=== PATIENT | male | born 1930 | race Caucasian/White ===

== ENCOUNTER 2017-11-28 13:09 | Outpatient (CLI) | payer MEDICARE, BC ==
--- NOTE | 2017-11-28 14:09 | RAD ---
LUMBAR SPINE FOUR VIEWS: History: 87-year-old male with history of worsening back pain. FINDINGS: Status post laminectomy, posterior fusion, and pedical screw placement changes at L4-5 with intradisc al prostheses. Extensive surgical clips in the pelvis and left total hip replacement change. Exam includes flexion and extension lateral views. No evidence of abnormal translation between flexio n and extension. IMPRESSION: Post-operative changes at L4-5. Other findings as above. POS: [facility]
== END 2017-11-28 13:10 | disposition home or self-care (01) ==
LOC: SCSRAD 13:09
PROVIDERS: ATTEND Family Medicine
DX: M54.5 Low back pain (principal); Z98.890 Other specified postprocedural states; Z98.1 Arthrodesis status
CPT/HCPCS: 72110

== ENCOUNTER 2018-05-04 06:36 | Emergency (ER) | payer MEDICARE, BC ==
[2018-05-04] MEDS ORDERED: Ondansetron ODT 4 MG TAB ONE (07:03)
[2018-05-04 07:38] LABS: #Eosinphils 0.1 thou/uL (0.0-0.7); #Lymphocytes 2.3 thou/uL (1.20-3.40); #Monocytes 0.6 thou/uL (0.11-0.59); #Neutrophils 7.2 thou/uL (1.40-6.50); %Basophils 0.4 % (0.0-1.0); %Eosinophils 0.8 % (0.0-10.0); %Lymphocytes 22.1 % (21.0-51.0); %Monocytes 5.7 % (0.0-10.0); Hemoglobin 16.4 g/dL (14.0-18.0); Mean Corpuscular HGB CONC 33.7 g/dL (32.0-36.0); Mean Corpuscular Hemoglobin 32.1 pg (27.0-31.0); Mean Corpuscular Volume 95.1 fL (78.0-98.0); Mean Platelet Volume 10.7 fL (7.4-10.4); Platelet Count 207 thou/uL (130-400); RBC Distribution Width 13.9 % (11.5-14.5); White Blood Cell (WBC) Count 10.2 thou/uL (4.8-10.8)
[2018-05-04] MEDS ORDERED: Ondansetron HCl/PF 4 MG/2 ML Vial ONE (08:09)
[2018-05-04 08:33] LABS: Bilirubin Negative (Negative); Blood, Urine Small (Negative); Clarity CLEAR (Clear); Glucose, Urine (Dipstick) Negative (Negative); Leukocyte Negative (Negative); Nitrite Negative (Negative); Protein, Urine (Dipstick) Negative (Neg-Trace); Specific Gravity, Urine 1.016 (1.002-1.036); Urobilinogen 0.2 mg/dL (0.2-1.0)
[2018-05-04 08:34] LABS: Bacteria/HPF None Seen HPF (None Seen); Hyaline Casts/LPF 0-3 HYALINE CAST LPF (0-3 Hyaline); Pathc Cast-AUWi Flag 0.14 (0-2.49); Squamous Epithelial 0-3 HPF (0-3); WBC/HPF 0-3 HPF (0-3)
--- NOTE | 2018-05-04 08:39 | CT ---
CT ABDOMEN AND PELVIS WITHOUT CONTRAST: INDICATIONS: History of DVT and right calf pain. FINDINGS: There is mild left hydronephrosis. There is prominent edema surrounding the ureter. There is a 4 mm calculus within the distal left ureter. There is bibasilar atelectasis. Unopacified liver, pancreas, and adrenal glands are unremarkable. There are granuloma within the spl een. Unopacified right kidney reveals a tiny hypodensity involving the inferior pole that can be fur ther characterized. There are moderate calcifications involving the abdominopelvic vasculature. Unopacified small and large bowel reveal no definite acute abnormality. There is a mild amount of re tained stool within the colon. There are numerous surgical clips within the lower pelvis, suspicious for a prior prostatectomy. Prominent beam scatter artifact from left total hip replacement limits v isualization of the pelvis. There is instrumentation involving the L4-L5 intervertebral level. No d efinite acute fracture or subluxation is evident. IMPRESSION: 1. A 4 mm distal left ureteral calculus with mild left hydronephrosis. 2. There is prominent edema surrounding the left ureter and the inferior aspect of the left renal pe lvis, which may be related to reactive edema in the retroperitoneum; however, a partial ureteral rupt ure cannot be entirely excluded. A urology consultation is recommended. POS: [facility]
[2018-05-04 08:45] LABS: Lavender RECEIVED; Red RECEIVED
[2018-05-04 09:13] LABS: ALT (SGPT) 13 U/L (8-55); AST (SGOT) 23 U/L (5-34); Albumin 4.5 g/dL (3.4-4.8); Alkaline Phosphatase 115 U/L (40-150); Anion Gap 13 mmol/L (10-20); BUN (Urea Nitrogen) 23 mg/dL (8.4-25.7); Bilirubin, Direct 0.4 mg/dL (0.1-0.3); Bilirubin, Total 1.1 mg/dL (0.2-1.2); Calc. Creatinine Clearance 0 mL/min (70-130); Calcium 9.3 mg/dL (7.8-10.44); Carbon Dioxide 27 mmol/L (23-31); Chloride 104 mmol/L (98-107); Estimated GFR-MDRD 72; Glucose 136 mg/dL (83-110); Lipase 22 U/L (8-78); Potassium 3.9 mmol/L (3.5-5.1); Protein, Total 7.1 g/dL (5.8-8.1); Sodium 140 mmol/L (136-145)
== END 2018-05-04 09:50 | disposition home or self-care (01) ==
LOC: ERS 06:36
DX: N13.2 Hydronephrosis with renal and ureteral calculous obstruction (principal); Z79.899 Other long term (current) drug therapy
CPT/HCPCS: 36415; 74176; 80048; 81003; 81015; 83690; 85025; 96374; 96375; J2270; J2405; Q0162

== ENCOUNTER 2018-07-26 13:20 | Outpatient (CLI) | payer MEDICARE, BC ==
--- NOTE | 2018-07-26 17:52 | RAD ---
THREE VIEWS LUMBAR SPINE WITH LATERAL AND FLEXION AND EXTENSION VIEWS PROVIDED: 07/26/18 HISTORY: Lumbar stenosis. History of prior back surgery. Patient having left lower extremity weakness for the last month. COMPARISON: 11/28/17. FINDINGS: As noted on prior study, there is posterior fusion at the L4-5 level with bipedicular screws and post erior rods transfixing this level. Intradiscal prosthesis is noted. There is no hardware complication present. Vertebral body heights are within normal limits. Scattered osteophytes are seen in the lumb ar spine. There is no fracture or subluxation identified. No abnormal translational motion is seen be tween the flexion and extension views. Multiple surgical clips again overlie the pelvis. The left total hip prosthesis again partially image d. IMPRESSION: 1. Stable postsurgical changes related to posterior fusion at the L4-5 level. No abnormal transl ational motion is seen between flexion and extension views. Vertebral body heights are within normal limits. 2. Vascular calcifications. POS: [facility]
--- NOTE | 2018-07-26 17:57 | MRI ---
MRI LUMBAR SPINE WITHOUT CONTRAST: Date: 07/26/18 HISTORY: Lumbar stenosis with neurogenic claudication. Left leg weakness x1 month. COMPARISON: None. FINDINGS: Appropriate T1 marrow signal intensity of the lumbar vertebra. There are bilateral transpedicular scr ews at L4 and L5 with associated metallic susceptibility artifact. There is a prosthesis at L4-L5 dis c space. 2.9 mm of retrolisthesis of L1 upon L2. No significant STIR hyperintensity to suggest vertebral body edema due to fracture. No evidence of ligamentous injury. There are mild Type I Modic changes at the inferior end plate of L1, inferior end plate of L2, superior end plate of L3, inferior end plate of L 3, and superior end plate of L4. Symmetric signal intensity of the psoas muscles. Appropriate signal intensity in the visualized solid organs. Conus medullaris terminates at the inferior aspect of T12. T12-L1: Adequate disc hydration. No significant central canal stenosis. Neural foraminal are patent bilateral ly. L1-L2: Desiccation with mild loss of disc space height. No significant posterior disc abnormality. No signif icant central canal stenosis. Mild right and mild to moderate left foraminal narrowing. L2-L3: Adequate disc hydration. No significant loss of disc space height. No significant posterior disc abno rmalities. Mild ligamentum flavum thickening and facet hypertrophy. No significant central canal sten osis. Right neural foramen is patent. Moderate left foraminal narrowing. L3-L4: Adequate disc hydration. No significant loss of disc space height. There is generalized disc bulge, l igamentum flavum thickening, and facet hypertrophy that causes mild to moderate stenosis of the theca l sac. There is narrowing of both subarticular zones, left greater than right. There is abutment of t he traversing right L4 nerve root and partial obscuration of the traversing left L4 nerve root. There is a small amount of fluid in both facet joints. Right neural foramen is patent. Moderate left neura l foraminal narrowing. L4-L5: There is a right hemilaminectomy defect. Disc prosthesis is identified. No significant central canal stenosis. Right neural foramen is patent. Mild left foraminal narrowing. L5-S1: Adequate disc hydration. No significant central canal stenosis. Minimal narrowing at the left subarti cular zone. Disc material abuts the traversing left S1 nerve root. No significant central canal steno sis. Mild bilateral foraminal narrowing. IMPRESSION: 1. Postsurgical changes of lumbar spine as above. 2. Degenerative changes of the lumbar spine as detailed above. There is no evidence of high grade ce ntral canal stenosis. Significant left foraminal narrowing at multiple levels, as detailed above. POS: [facility]
== END 2018-07-26 13:21 | disposition home or self-care (01) ==
LOC: SCSMRI 13:20
PROVIDERS: ATTEND Anesthesiology Pain Medicine
DX: M48.062 Spinal stenosis, lumbar region with neurogenic claudication (principal); M47.896 Other spondylosis, lumbar region; M99.83 Other biomechanical lesions of lumbar region; Z98.1 Arthrodesis status
CPT/HCPCS: 72100; 72148

== ENCOUNTER 2019-03-08 09:27 | Emergency (ER) | payer MEDICARE, BC ==
[2019-03-08 10:19] LABS: #Basophils 0.1 thou/uL (0.0-0.2); #Eosinphils 0.1 thou/uL (0.0-0.7); #Lymphocytes 1.2 thou/uL (1.20-3.40); #Monocytes 0.6 thou/uL (0.11-0.59); #Neutrophils 5.8 thou/uL (1.40-6.50); %Basophils 1.1 % (0.0-1.0); %Eosinophils 1.1 % (0.0-10.0); %Lymphocytes 15.4 % (21.0-51.0); %Monocytes 7.9 % (0.0-10.0); %Neutrophils 74.5 % (42.0-75.0); Hemoglobin 15.5 g/dL (14.0-18.0); Mean Corpuscular HGB CONC 32.9 g/dL (32.0-36.0); Mean Corpuscular Hemoglobin 31.2 pg (27.0-31.0); Mean Corpuscular Volume 94.8 fL (78.0-98.0); Platelet Count 180 thou/uL (130-400); Red Blood Cell (RBC) Count 4.98 mill/uL (4.70-6.10); White Blood Cell (WBC) Count 7.8 thou/uL (4.8-10.8)
[2019-03-08 10:28] LABS: ALT (SGPT) 20 U/L (8-55); AST (SGOT) 17 U/L (5-34); Albumin 3.7 g/dL (3.4-4.8); Alkaline Phosphatase 109 U/L (40-150); Anion Gap 10 mmol/L (10-20); BUN (Urea Nitrogen) 20 mg/dL (8.4-25.7); Bilirubin, Total 0.7 mg/dL (0.2-1.2); CK (CPK) 69 U/L (30-200); Calc. Creatinine Clearance 0 mL/min (70-130); Carbon Dioxide 29 mmol/L (23-31); Chloride 108 mmol/L (98-107); Estimated GFR-MDRD 88; Globulin 2.3 g/dL (2.4-3.5); Glucose 79 mg/dL (83-110); Lipase 25 U/L (8-78); Sodium 143 mmol/L (136-145)
--- NOTE | 2019-03-08 10:41 | RAD ---
PORTABLE CHEST 1 VIEW: Date: 03/08/19 Time: 1032 hours HISTORY: Shortness of breath. FINDINGS: Comparison made with exam of 10/11/16. The heart size is normal. There are changes of median sternotomy. The lungs are expanded without loba r consolidation, pneumothoraces, or pleural effusions. There is no evidence of rima pulmonary edema. IMPRESSION: No acute process. POS: [facility]
[2019-03-08] MEDS ORDERED: Azithromycin 250 MG TAB ONE (11:46)
[2019-03-08] MEDS ORDERED: methylPREDNISolone Sod Succ/PF 125 MG/2 ML VIAL ONE (11:46)
== END 2019-03-08 12:08 | disposition home or self-care (01) ==
LOC: SCSER 09:27
DX: J20.9 Acute bronchitis, unspecified (principal); Z79.82 Long term (current) use of aspirin; Z79.899 Other long term (current) drug therapy
CPT/HCPCS: 71045; 80053; 82550; 83690; 83880; 84484; 85025; 93005; 94760; 96374; J2930; J7620

== ENCOUNTER 2020-12-28 11:45 | Outpatient (CLI) | payer MEDICARE, BC ==
[2020-12-28 14:49] LABS: Anion Gap 10 mmol/L (10-20); BUN (Urea Nitrogen) 27 mg/dL (8.4-25.7); Calc. Creatinine Clearance 0 mL/min (70-130); Calcium 9.2 mg/dL (7.8-10.44); Carbon Dioxide 29 mmol/L (23-31); Chloride 105 mmol/L (98-107); Glucose 72 mg/dL (83-110); Potassium 4.4 mmol/L (3.5-5.1); Sodium 140 mmol/L (136-145)
[2020-12-28 14:53] LABS: Hemoglobin 14.8 g/dL (13.5-17.5); Mean Corpuscular HGB CONC 32.4 g/dL (32.0-36.0); Mean Corpuscular Hemoglobin 30.7 pg (27.0-33.0); Mean Corpuscular Volume 94.8 fl (81.2-95.1); Mean Platelet Volume 12.6 fl (7.4-10.4); Platelet Count 240 10x3/uL (150-450); RBC Distribution Width 13.4 % (11.5-14.5); Red Blood Cell (RBC) Count 4.82 10x6/uL (4.32-5.72); White Blood Cell (WBC) Count 7.4 10x3/uL (3.5-10.5)
[2020-12-29 02:30] LABS: SARS-CoV-2 PCR by NAA Not Detected (NotDetected)
== END 2020-12-28 11:46 | disposition home or self-care (01) ==
LOC: LABBT 11:45
PROVIDERS: ATTEND Specialist
DX: Z01.818 Encounter for other preprocedural examination (principal); Z20.822 Contact with and (suspected) exposure to COVID-19; J38.01 Paralysis of vocal cords and larynx, unilateral; R49.0 Dysphonia
CPT/HCPCS: 80048; 85027; 93005; U0003; U0005; 87635; 93010

== ENCOUNTER 2020-12-31 09:06 | Day surgery (SDC) | payer MEDICARE, BC ==
[2020-12-30 13:19] VITALS: BMI 22.9
[2020-12-31] MEDS ORDERED: EPINEPHrine 1 MG/ML AMP ONE (10:59)
[2020-12-31] MEDS ORDERED: Fentanyl 100 MCG/2 ML VIAL ONE (11:04)
[2020-12-31] MEDS ORDERED: Propofol 500 MG/50 ML VIAL ONE (11:04)
[2020-12-31] MEDS ORDERED: Lidocaine 1% PF 5 ML VIAL ONE (11:47)
[2020-12-31] MEDS ORDERED: Ondansetron PF 4 MG/2 ML Vial ONE (11:47)
[2020-12-31] MEDS ORDERED: ePHEDrine 50 MG/ML VIAL ONE (11:47)
[2020-12-31] MEDS ORDERED: PHENYLEPHRINE-NS 100 MCG/ML 10 ML SYRINGE ONE (11:47)
[2020-12-31] MEDS ORDERED: Dexamethasone 20 MG/5 ML VIAL ONE (11:47)
== END 2020-12-31 13:47 | disposition home or self-care (01) ==
LOC: SDC 09:06
PROVIDERS: ATTEND Specialist
PROC: 3E0F8GC Introduction of Other Therapeutic Substance into Respiratory Tract, Via Natural or Artificial Opening Endoscopic (ICD-10-PCS; principal; 2020-12-31)
DX: J38.01 Paralysis of vocal cords and larynx, unilateral (principal); H90.3 Sensorineural hearing loss, bilateral; H71.90 Unspecified cholesteatoma, unspecified ear; I48.91 Unspecified atrial fibrillation; M19.90 Unspecified osteoarthritis, unspecified site; Z79.82 Long term (current) use of aspirin; Z79.899 Other long term (current) drug therapy; Z91.041 Radiographic dye allergy status; Z95.1 Presence of aortocoronary bypass graft
CPT/HCPCS: J0171; J1100; J2405; J2704; J3010; J3490

== ENCOUNTER 2021-05-25 10:10 | Outpatient (CLI) | payer MEDICARE, BC | END 2021-05-25 10:11 | disposition home or self-care (01) | LOC: BICRAD 10:10 | PROVIDERS: ATTEND Family Medicine | DX: M54.5 Low back pain (principal); M47.816 Spondylosis without myelopathy or radiculopathy, lumbar region; Z96.7 Presence of other bone and tendon implants | CPT/HCPCS: 72100 ==